=== PATIENT | male | born 1975 | race Native Hawaiian/Other Pacific Islander ===

== ENCOUNTER 2023-04-20 22:45 | Emergency (ER) | payer OTHER ==
[~2023-04-20] VITALS: Ht 180.3 cm; Wt 105.7 kg
[2023-04-20 23:37] LABS: PLATELET COUNT 192 K/uL (142-355)
[2023-04-20 23:40] LABS: POTASSIUM 4.3 mmol/L (3.6-5.2)
[2023-04-21 15:58] LABS: POTASSIUM 3.8 mmol/L (3.6-5.2)
[2023-04-23 07:22] VITALS: BP 118/78; TEMP 98
== END 2023-04-23 09:55 | disposition still patient (30) ==
LOC: ED 22:45
PROVIDERS: Family Medicine
DX: R45.851 Suicidal ideations (principal); I10 Essential (primary) hypertension
CPT/HCPCS: 36415; 80048; 80053; 80143; 80179; 80307; 80320; 81002; 85027; 87635; 93005; 99285; U0003